=== PATIENT | female | born 2000 | race Two or more races ===

== ENCOUNTER → 2022-02-14 | Emergency (ER) | payer OTHER ==
[~2022-02-14] VITALS: Ht 160 cm; Wt 59.0 kg
== END | disposition home or self-care (01) ==
LOC: ER 15:52
DX: S81.012A Laceration without foreign body, left knee, initial encounter (principal); W26.8XXA Contact with other sharp object(s), not elsewhere classified, initial encounter; Y93.9 Activity, unspecified; Y92.9 Unspecified place or not applicable; Y99.9 Unspecified external cause status

== ENCOUNTER 2022-02-24 16:34 | Emergency (ER) | payer OTHER ==
[~2022-02-24] VITALS: Ht 160 cm; Wt 60.3 kg
== END 2022-02-24 20:30 | disposition home or self-care (01) ==
LOC: ER 16:34
DX: Z48.02 Encounter for removal of sutures (principal)